=== PATIENT | female | born 1965 | race Caucasian/White ===

== ENCOUNTER → 2018-04-18 08:31 | Outpatient (CLI) | payer OTHER, SELFPAY ==
--- NOTE | 2018-04-18 08:35 | BI_ITS ---
MAMMOGRAPHY - BILATERAL SCREENING REASON FOR EXAM: Female, 52 years old. Routine annual screening examination. PERTINENT HISTORY: FAM HX GMA AGE 84, GAINED 10# IN LAST 5 YRS NO SX BILAT MOLES REMOVED FROM [facility] 2 WEEKS AG TECHNIQUE: Digital bilateral breast erin (3D mammographic acquisition) in the CC and MLO projections. 2-D mediolateral oblique (MLO) and craniocaudad (CC) views of both breasts were obtained. CAD: Full Field Digital Mammography with Computer Added Detection was performed. COMPARISON: Dec 21 2012 2:58pm FINDINGS: Breast Composition: There are scattered areas of fibroglandular density. There are no dominant masses or suspicious calcifications. No other significant abnormalities are identified. BI/SCREENING MAMM (CAD), BILAT IMPRESSION: Stable bilateral screening mammogram. Yearly follow-up mammogram recommended. (A) ASSESSMENT CATEGORY: BIRADS Category 2: Benign. A letter regarding these results will be sent to the patient by the facility within 30 days. Approximately 10% of breast cancers are not detected by mammography. A normal mammogram should not delay biopsy of a clinically suspicious abnormality. [id number] Electronically Signed: Corby Prado MD at 15:19 EDT Tel , Service support ,
== END ==
PROVIDERS: Family Provider Family Medicine; PCP Family Medicine; Referring Provider Family Medicine; Visit Provider Family Medicine
DX: Z12.31 Encounter for screening mammogram for malignant neoplasm of breast (principal)
CPT/HCPCS: 77063; 77067

== ENCOUNTER → 2020-04-23 15:15 | Outpatient (CLI) | payer OTHER, SELFPAY ==
[2020-04-23 17:52] LABS: Erythrocyte Sedimentation Rate 11 mm/hr (0-30)
[2020-04-23 19:08] LABS: CRP < 2.90 mg/L (0.0-3.0); Rheumatoid Factor < 10.0 IU/mL (<15)
[2020-04-27 18:04] LABS: Cytoplasmic Ab (C-ANCA) <1:20 titer (Neg:<1:20); Perinuclear Ab (P-ANCA) <1:20 titer (Neg:<1:20)
[2020-04-27 18:06] LABS: ANTINUCLEAR ANTIBODIES DIRECT Positive (Negative)
== END ==
PROVIDERS: PCP Family Medicine; Referring Provider Ophthalmology; Visit Provider Ophthalmology
DX: H15.109 Unspecified episcleritis, unspecified eye (principal)
CPT/HCPCS: 36415; 85652; 86038; 86140; 86256; 86431

== ENCOUNTER → 2020-07-08 09:44 | Outpatient (CLI) | payer OTHER, SELFPAY ==
[2020-07-08 10:48] LABS: EXAGEN MAILED SPECIMEN
[2020-07-08 12:52] LABS: Color, Urine Yellow (Yellow); Erythrocyte Sedimentation Rate 6 mm/hr (0-30); Glucose, Dipstick Normal (Normal); Ketone-Dipstick Negative (Negative); Leukocyte Esterase-Dipstick Negative /ul (Negative); Nitrite-Dipstick Negative (Negative); Occult Blood-Urine Negative /ul (Negative); Protein-Dipstick Negative (Negative); Urine Bilirubin Dipstick Negative (Negative); Urine Clarity Clear (Clear); Urine Urobilinogen Normal (Normal)
[2020-07-08 12:54] LABS: Absolute Lymphocyte Count 1.69 X10^3/uL (0.83-4.51); Absolute Neutrophil Count 2.8 X10^3/uL (2.0-7.7); Basophil# 0.01 X10^3/uL; Basophil% 0.2 % (0-1); Eosinophil# 0.28 X10^3/uL; Eosinophils% 5.5 % (0-5); Hemoglobin 13.3 g/dL (12.0-15.0); Lymphocyte # 1.69 X10^3/ul (4.0); Mean Corp Hgb Conc 33.3 g/dL (32-36); Mean Corpuscular Hgb 28.4 pg (27.0-32.0); Mean Corpuscular Volume 85.3 fL (81-99); Mean Platelet Vol. 10.8 fl (6.2-12.0); Monocyte# 0.35 X10^3/uL; Monocyte% 6.8 % (0-10); NRBC Flagged by Analyzer 0 % (0-5); Neutrophil # 2.78 X10^3/uL (2.7-7.7); Neutrophil % 54.3 % (47-70); Platelet Count 207 K/mm3 (150-450); RBC Distribution Width CV 12.5 % (11.6-14.6); RBC Distribution Width SD 38.8 fl (35.1-43.9); Red Blood Count 4.69 M/mm3 (4.2-5.4); White Blood Count 5.1 K/mm3 (4.4-11.0)
[2020-07-08 13:05] LABS: Protein, Urine (Random) 10.2 mg/dL (<11.9); Protein:Creat Ratio 165 mg/g CRE (0-200)
[2020-07-08 13:15] LABS: AST(SGOT) 16 U/L (15-37); Alanine Aminotransfer ALT/SGPT 26 U/L (13-56); Albumin, Serum 4.1 g/dL (3.2-5.0); Alkaline Phosphatase 77 U/L (45-117); Anion Gap 3 (5-15); BUN 13 mg/dL (7-18); BUN/Creat Ratio 17.9 RATIO (10-20); CRP < 2.90 mg/L (0.0-3.0); Calcium,Total 9.5 mg/dL (8.5-10.1); Chloride 103 mmol/L (98-107); Creatinine, Serum 0.72 mg/dL (0.55-1.02); EST Glomerular Filtration Rate 88 mL/min (>60); Est Glom Filt Rate - Afr Amer 107 mL/min (>60); Globulin 4.2 g/dL (2.2-4.2); Glucose 78 mg/dL (74-106); Potassium 3.7 mmol/L (3.5-5.1); Protein, Total 8.3 g/dL (6.4-8.2); Sodium Level 137 mmol/L (136-145)
== END ==
PROVIDERS: PCP Family Medicine; Referring Provider Internal Medicine Rheumatology; Visit Provider Internal Medicine Rheumatology
DX: L40.59 Other psoriatic arthropathy (principal); L40.8 Other psoriasis; H00-H59 Diseases of the eye and adnexa; H15.103 Unspecified episcleritis, bilateral; K58.9 Irritable bowel syndrome, unspecified; R76.8 Other specified abnormal immunological findings in serum; Z15.89 Genetic susceptibility to other disease
CPT/HCPCS: 36415; 80053; 81002; 82570; 84156; 85025; 85652; 86140

== ENCOUNTER 2020-10-09 22:13 | Emergency (ER) | payer OTHER, SELFPAY ==
[2020-10-09 22:14] VITALS: BP 149/85; PULSE 74; RESP 18; TEMP 36.6; O2SAT 99; BMI 29.6
--- NOTE | 2020-10-09 22:41 | EKG12_ITS ---
Test Reason : DYSRHYTHMIA Blood Pressure : / mmHG Vent. Rate : 063 BPM Atrial Rate : 063 BPM P-R Int : 160 ms QRS Dur : 080 ms QT Int : 392 ms P-R-T Axes : 050 014 046 degrees QTc Int : 401 ms Normal sinus rhythm with sinus arrhythmia Normal ECG Confirmed by DANIEL MITCHELL, AYLA ([id number]), development editor JOSE LUIS SOUZA ([id number]) on 10/12/2020 1:50:49 PM Referred By: MARGOTH Confirmed By:AYLA SANCHEZ MD
--- NOTE | 2020-10-09 22:41 | ED.VIS.GEN ---
History of Present Illness Chief Complaint: General Illness Informant: Patient Onset: Weeks - 2 Context: Sudden Onset Timing: Intermittent, Lasts - 10-20 min Quality: ache Location: left upper arm, radiating into left upper back/trapezius Current Severity: gone at current time Maximum Severity: Severe Worsened by: moving when pain is present Relieved by: nothing in particular Associated Symptoms: none Narrative: Patient with 2 weeks of intermittent symptoms, states they occur randomly and there is no obvious pattern. She has them multiple times per day most days. She does not have a history of heart problems and had a negative routine stress test years ago. She is a non-smoker. She takes no prescriptions for diabetes, hypertension, hyperlipidemia, just occasional eyedrops and NSAIDs for episcleritis that occasionally flares up in her right eye. When she has the symptoms, she states it is really in her upper arm mostly, and it really hurts to move her left arm. When he goes away, she can move her left arm without any pain. She denies any injury. She is right-hand dominant. She does a lot of climbing ladders, lifting, pulling heavy things at work, but cannot think of anything specific that could be responsible for this. When the symptoms are present she has no lightheadedness, palpitations, racing heartbeat, chest discomfort, shortness of breath, abdominal pain. No recent leg pain or swelling. No pleuritic symptoms. She states her main purpose for coming here was to make sure that she has not been having her pain. - Past Medical History (1) Episcleritis of right eye Status: Chronic Past Medical History - Allergies and Home Meds Allergies/Adverse Reactions: Allergies amoxicillin [From Augmentin] Adverse Reaction (Verified 10/09/20 22:16) Other nervous clavulanic acid [From Augmentin] Adverse Reaction (Verified 10/09/20 22:16) Other nervous Primary Care Physician: Amanda Belle MD [Primary Care Provider] - Lives: With Family Smoking Status: Never smoker Review of Systems General: Denies: Chills, Fever, Sweats Eyes: Denies: Visual changes - bilaterally, Diplopia ENT: Denies: Rhinorrhea, Sore throat Cardiovascular: Denies: Chest pain, Palpitations Respiratory: Denies: Dyspnea, Cough, Dyspnea on exertion Gastrointestinal: Denies: Abdominal pain, Nausea, Vomiting, Diarrhea, Melena, Hematochezia Genitourinary: Denies: Dysuria, Hematuria, Frequency Musculoskeletal: Reports: Back pain, Extremity Pain. Denies: Myalgias, Neck pain Skin: Denies: Rash, Wounds Neurological: Denies: Headache, Weakness, Numbness Physical Exam Vital Signs/Narrative: Vital Signs Temp Pulse Resp BP Pulse Ox 10/09/20 22:14 97.9 F 74 18 149/85 H 99 Inital Vital Signs reviewed: Yes General: Well nourished, Well developed, No Acute Distress - Well-appearing in no distress Head: Normocephalic, Atraumatic Eyes: Perrl, EOMI ENT: Moist mucous membranes, No rhinorrhea Neck: Supple, Nontender, No lymphadenopathy Cardiovascular: Regular rate, Regular rhythm, No murmurs, Normal S1, Normal S2. Negative for: Tachycardia Respiratory: No distress, CTA bilaterally, Chest nontender Abdomen: Soft, Nontender, Nondistended, Normal bowel sounds Back: Nontender, Normal Inspection Extremities: Nontender - Throughout extremities including left upper arm. Negative drop sign when testing supraspinatus, no pain., No edema Skin: Normal color, No rash, No Trauma Neurological: Alert, Oriented x3, Cranial nerves II-XII grossly intact, Normal Strength, Normal Sensation, Normal Gait Psychological: Normal affect, Normal Mood Diagnostic/Tx/Re-eval Laboratory Results 10/09/20 10/09/20 22:29 22:29 WBC 5.8 RBC 4.74 Hgb 13.5 Hct 39.4 MCV 83.1 MCH 28.5 MCHC 34.3 RDW Std Deviation 38.0 RDW Coeff of Manuel 12.5 Plt Count 182 MPV 10.7 Immature Gran % (Auto) 0.300 Neut % (Auto) 47.1 Lymph % (Auto) 39.1 [place] % (Auto) 9.0 Eos % (Auto) 4.3 Baso % (Auto) 0.2 Absolute Neuts (auto) 2.7 Absolute Lymphs (auto) 2.27 Nucleated RBC % 0 Sodium 141 Potassium 3.6 Chloride 105 Carbon Dioxide 29.0 Anion Gap 7 BUN 16 Creatinine 0.79 Estim Creat Clear Calc 70.70 Est GFR (MDRD) Af Amer 96 Est GFR (MDRD) Non-Af 80 BUN/Creatinine Ratio 20.2 H Glucose 112 H Calcium 9.8 Troponin I < 0.015 - Rhythm Strip Rhythm Strip: Sinus Rhythm Rate: 63 Ectopy: None - EKG Initial EKG Interpretation: Sinus Rhythm, No Acute Injury Pattern - normal EKG - Medical Decision Making This patient's history is unusual but it sounds musculoskeletal, given that she states that when she has the arm pain, her arm is virtually disabled because it hurts so bad to move, and she confirms that moving does make it worse when she has it. It sounds like it might be muscular spasm; she did not have any electrolyte abnormalities. Sounds less like radiculopathy but that would be in the differential as well, if so coming from the neck. Her cardiac work-up is normal. This makes acute coronary syndrome much less likely given the length of time this has been going on and numerous episodes per day. Given that she is safely discharged home to follow-up with her doctor she is comfortable with that plan. All of this being the case, as I discussed with the patient, if she is incorrect about the pain being worse when she moves her arm, it may be reasonable for her to have another outpatient stress test but I do not think she needs to be admitted for that. ED Disposition - Plan for ED Patient: Disposition: Home or Assisted Living Diagnosis: Left upper arm pain Instructions: ED Muscle Strain, Extremity Referrals: Amanda Belle MD [Primary Care Provider] - (This coming week, call for appointment)
[2020-10-09 22:55] LABS: Absolute Lymphocyte Count 2.27 X10^3/uL (0.83-4.51); Absolute Neutrophil Count 2.7 X10^3/uL (2.0-7.7); Basophil# 0.01 X10^3/uL; Basophil% 0.2 % (0-1); Eosinophil# 0.25 X10^3/uL; Eosinophils% 4.3 % (0-5); Hematocrit 39.4 % (37-47); Hemoglobin 13.5 g/dL (12.0-15.0); Lymphocyte # 2.27 X10^3/ul (4.0); Lymphocyte % 39.1 % (19-41); Mean Corp Hgb Conc 34.3 g/dL (32-36); Mean Corpuscular Hgb 28.5 pg (27.0-32.0); Mean Corpuscular Volume 83.1 fL (81-99); Mean Platelet Vol. 10.7 fl (6.2-12.0); Monocyte# 0.52 X10^3/uL; NRBC Flagged by Analyzer 0 % (0-5); Neutrophil # 2.73 X10^3/uL (2.7-7.7); Neutrophil % 47.1 % (47-70); Platelet Count 182 K/mm3 (150-450); RBC Distribution Width CV 12.5 % (11.6-14.6); Red Blood Count 4.74 M/mm3 (4.2-5.4); White Blood Count 5.8 K/mm3 (4.4-11.0)
[2020-10-09 23:02] LABS: Anion Gap 7 (5-15); BUN 16 mg/dL (7-18); BUN/Creat Ratio 20.2 RATIO (10-20); Calcium,Total 9.8 mg/dL (8.5-10.1); Chloride 105 mmol/L (98-107); Creatinine, Serum 0.79 mg/dL (0.55-1.02); EST Glomerular Filtration Rate 80 mL/min (>60); Est Glom Filt Rate - Afr Amer 96 mL/min (>60); Glucose 112 mg/dL (74-106); Potassium 3.6 mmol/L (3.5-5.1); Sodium Level 141 mmol/L (136-145)
[2020-10-10 00:12] VITALS: BP 121/74; PULSE 71; RESP 15; O2SAT 96
== END 2020-10-10 00:12 | disposition home or self-care (01) ==
PROVIDERS: Emergency Provider Emergency Medicine; PCP Family Medicine
DX: M79.622 Pain in left upper arm (principal)
CPT/HCPCS: 80048; 84484; 85025; 93005; 99284; A4216

== ENCOUNTER → 2021-02-12 17:50 | Outpatient (CLI) | payer OTHER, SELFPAY ==
[2021-02-12 20:02] LABS: Probe Check PASS; Specimen Processing Control PASS
== END ==
PROVIDERS: PCP Family Medicine; Referring Provider Family Medicine; Visit Provider Family Medicine
DX: Z20.822 Contact with and (suspected) exposure to COVID-19 (principal)
CPT/HCPCS: 87635; U0005; U0003

== ENCOUNTER 2021-09-16 11:50 | Outpatient (CLI) | payer OTHER, SELFPAY ==
--- NOTE | 2021-09-16 11:53 | BI_ITS ---
MAMMOGRAPHY - BILATERAL SCREENING REASON FOR EXAM: Female, 55 years old. Routine annual screening examination. PERTINENT HISTORY: Grandmother with breast cancer. TECHNIQUE: Digital bilateral breast sultana (3D mammographic acquisition) in the CC and MLO projections. 2-D mediolateral oblique (MLO) and craniocaudad (CC) views of both breasts were obtained. CAD: Full Field Digital Mammography with Computer Added Detection was performed. COMPARISON: Comparison is made with prior study done 04/18/2018 and 12/21/2012. FINDINGS: Breast Composition: There are scattered areas of fibroglandular density. There are no dominant masses or suspicious calcifications. No other significant abnormalities are identified. There has been no significant change since the prior study. BI/SCRN MAMM (CAD)W/SULTANA BILAT IMPRESSION: Stable bilateral screening mammogram. Yearly follow-up mammogram recommended. (A) ASSESSMENT CATEGORY: BIRADS Category 1: Negative. A letter regarding these results will be sent to the patient by the facility within 30 days. Approximately 10% of breast cancers are not detected by mammography. A normal mammogram should not delay biopsy of a clinically suspicious abnormality. [id number] Electronically Signed: Mando Almeida MD at 13:18 EST ,
== END 2021-09-16 23:59 | disposition home or self-care (01) ==
LOC: OPBI 11:51
PROVIDERS: PCP Family Medicine; Referring Provider Family Medicine; Visit Provider Family Medicine
DX: Z12.31 Encounter for screening mammogram for malignant neoplasm of breast (principal)
CPT/HCPCS: 77063; 77067

== ENCOUNTER → 2021-12-30 | Outpatient (CLI) | payer OTHER, SELFPAY ==
--- NOTE | 2021-12-30 12:56 | ECHOD_ITS ---
Reason For Study: Chest pain, JEFFERS Procedure This was a 2D Doppler, Color Flow transthoracic echocardiogram. The exam was of adequate technical quality. Exam performed in department. Left Ventricle Normal LV size. Apical false tendon noted. Left ventricular systolic function is normal. The estimated ejection fraction is 60 %. No evidence for diastolic dysfunction. No regional wall motion abnormalities noted. Right Ventricle Normal RV size. Normal systolic function. Atria Normal left atrium. Normal right atrium. No doppler evidence for ASD. Mitral Valve There is no mitral annular calcification. Normal mitral valve. Trivial mitral valve insufficiency. Tricuspid Valve Normal tricuspid valve. Trivial tricuspid valve insufficiency. Right ventricular systolic pressure estimated to be 21 mmHg. Aortic Valve Trisinus/trileaflet aortic valve. Normal aortic valve. Pulmonic Valve The pulmonic valve is not well visualized. Great Vessels Normal sized aortic root. Pericardium/Pleural No pericardial effusion. MMode/2D Measurements & Calculations LVIDd: 4.5 cm IVSd: 0.97 cm Ao root diam: 2.7 cm LVIDs: 2.6 cm LVPWd: 0.93 cm RVDd: 3.5 cm FS: 41.7 % LAV(MOD-bp): 51.2 ml LVAd ap4: 23.9 cm2 LVAd ap2: 24.9 cm2 LAV(MOD-bp) Indexed: 27.0 ml/m2 LVLd ap4: 7.6 cm LVLd ap2: 7.8 cm LAV(MOD-sp2): 44.6 ml EDV(MOD-sp4): 62.3 ml EDV(MOD-sp2): 71.4 ml LAV(MOD-sp4): 54.4 ml EDV(sp4-el): 63.3 ml EDV(sp2-el): 68.0 ml LVAs ap4: 13.6 cm2 LVAs ap2: 13.3 cm2 LVLs ap4: 6.9 cm LVLs ap2: 6.8 cm ESV(MOD-sp4): 23.4 ml ESV(MOD-sp2): 24.7 ml ESV(sp4-el): 22.7 ml ESV(sp2-el): 22.2 ml EF(MOD-sp4): 62.5 % EF(MOD-sp2): 65.5 % EF(sp4-el): 64.2 % SV(MOD-sp4): 39.0 ml SV(MOD-sp2): 46.7 ml SV(sp4-el): 40.6 ml LA dimension(2D): 3.8 cm LA A4 area: 19.4 cm2 RA A4 area: 14.6 cm2 Doppler Measurements & Calculations MV E max matt: 88.0 cm/sec Lat Peak E' Matt: 13.3 cm/sec Med Peak E' Matt: 8.5 cm/sec MV A max matt: 59.0 cm/sec E/E' lat: 6.6 E/E' med: 10.3 MV E/A: 1.5 Ao V2 max: 142.3 cm/sec LV V1 max: 106.4 cm/sec PA V2 max: 97.3 cm/sec Ao max P.1 mmHg LV V1 max P.5 mmHg TR max matt: 203.0 cm/sec TR max P.5 mmHg ECHO/Echo Complete Interpretation Summary Left ventricular systolic function is normal. The estimated ejection fraction is 60 %. Apical false tendon noted. Trivial mitral valve insufficiency. Trivial tricuspid valve insufficiency. Right ventricular systolic pressure estimated to be 21 mmHg. No evidence for diastolic dysfunction. Ordering Physician: Cheng Her Referring Physician: Amanda Belle M.D. Performed By: Lucero Scott RDCS
== END | disposition home or self-care (01) ==
LOC: CVS 12:54
PROVIDERS: PCP Family Medicine; Referring Provider Internal Medicine Cardiovascular Disease; Visit Provider Internal Medicine Cardiovascular Disease
DX: R07.9 Chest pain, unspecified (principal); R06.00 Dyspnea, unspecified; Z82.49 Family history of ischemic heart disease and other diseases of the circulatory system
CPT/HCPCS: 93306

== ENCOUNTER → 2022-01-12 | Outpatient (CLI) | payer OTHER, SELFPAY ==
--- NOTE | 2022-01-12 13:06 | STRESSREP_ITS ---
Stress Test Report Date: 01-12-2022 Procedure: Exercise tolerance test/imaging study Indications: Shortness of breath/dyspnea on exertion; family history of toby ture cardiovascular disease Consent: Per the patient Procedure: The patient exercised on a Boy protocol for 7 minutes and 11 seconds completing Stage II and 1 minute and 11 seconds of Stage III achieving a peak heart rate of 148 bpm (91% predicted maximal heart rate) with a peak blood pressure 192/80 mmHg and a peak MET capacity of 10 METs. The baseline ECG demonstrated sinus bradycardia. The peak exercise ECG demonstrated with somatic/motion artifact with approximately 0.[address] segment depression in leads II, III, aVF, and V3 through V6 with resolution towards baseline beginning less than 1 minute in recovery. There was an isolated PVC during exercise. The functional capacity was considered good. There was no complaint of chest discomfort during exercise or recovery. The examination was discontinued secondary to dyspnea. Impression: 1. Technically adequate (percent predicted maximal heart rate greater than 85%) exercise tolerance test 2. Peak exercise ECG with somatic/motion artifact with approximately 0.[address] segment depression in leads II, III, aVF, and V3 through V6 with resolution towards baseline beginning less than 1 minute in recovery 3. There was an isolated PVC during exercise 4. Nuclear images pending Myocardial perfusion imaging study: Technique: The patient was injected with 11.9 mCi of technetium 99m Cardiolite and subsequently rest SPECT Cardiolite nuclear imaging was obtained in the horizontal long, vertical long, and short axis views. The patient exercised on a Boy protocol for 7 minutes and 11 seconds completing Stage II and 1 minute and 11 seconds of Stage III achieving a peak heart rate of 148 bpm (91% predicted maximal heart rate) with a peak blood pressure 192/80 mmHg and a peak MET capacity of 10 METs. The patient was injected with 34.6 mCi of technetium 99m Cardiolite and subsequently stress SPECT Cardiolite nuclear imaging was obtained in the horizontal long, vertical long, and short axis views. A gated Cardiolite study at peak stress was obtained. Interpretation: Rest and stress SPECT Cardiolite nuclear imaging status post realignment, normalization, and attenuation correction, demonstrates the appearance of relative uniform tracer uptake and myocardial perfusion appearing within normal limits. There is end systolic thickening and brightening. The gated Cardiolite study demonstrates myocardial thickening and inward wall motion. The reported LVEF is 64%. Impression: 1. Rest and stress SPECT Cardiolite nuclear imaging demonstrate relative uniform tracer uptake and myocardial perfusion appearing within normal limits. 2. The gated Cardiolite study reports an LVEF of 64%. This note was generated with [employer] dictation software. It may contain incorrect words, spelling, and punctuation that were not noted in checking the note before signing.
== END | disposition home or self-care (01) ==
PROVIDERS: PCP Family Medicine; Referring Provider Internal Medicine Cardiovascular Disease; Visit Provider Internal Medicine Cardiovascular Disease
DX: R07.9 Chest pain, unspecified (principal); R06.09 Other forms of dyspnea; Z82.49 Family history of ischemic heart disease and other diseases of the circulatory system
CPT/HCPCS: 78452; 93017; A9500; A4216

== ENCOUNTER → 2022-12-05 | Outpatient (CLI) | payer OTHER, SELFPAY ==
--- NOTE | 2022-12-05 13:36 | BI_ITS ---
MAMMOGRAPHY - BILATERAL SCREENING REASON FOR EXAM: Female, 57 years old. Routine annual screening examination. PERTINENT HISTORY: Grandmother with breast cancer. TECHNIQUE: Digital bilateral breast sultana (3D mammographic acquisition) in the CC and MLO projections. 2-D mediolateral oblique (MLO) and craniocaudad (CC) views of both breasts were obtained. CAD: Full Field Digital Mammography with Computer Added Detection was performed. COMPARISON: Mammogram from 09/16/2021, 04/18/2018 FINDINGS: Breast Composition: There are scattered areas of fibroglandular density. There are no dominant masses or suspicious calcifications. No other significant abnormalities are identified. There has been no significant change since the prior study. BI/SCRN MAMM (CAD)W/SULTANA BILAT IMPRESSION: Stable bilateral screening mammogram. Yearly follow-up mammogram recommended. (A) ASSESSMENT CATEGORY: BIRADS Category 1: Negative. A letter regarding these results will be sent to the patient by the facility within 30 days. Approximately 10% of breast cancers are not detected by mammography. A normal mammogram should not delay biopsy of a clinically suspicious abnormality. Electronically Signed: Oleg Fitzpatrick MD at 16:35 EDT ,
== END | disposition home or self-care (01) ==
LOC: OPBI 13:35
PROVIDERS: PCP Family Medicine; Referring Provider Family Medicine; Visit Provider Family Medicine
DX: Z12.31 Encounter for screening mammogram for malignant neoplasm of breast (principal); Z80.3 Family history of malignant neoplasm of breast
CPT/HCPCS: 77063; 77067

== ENCOUNTER → 2024-01-11 | Outpatient (CLI) | payer OTHER, SELFPAY ==
--- NOTE | 2024-01-11 13:03 | BI_ITS ---
MAMMOGRAPHY - BILATERAL SCREENING REASON FOR EXAM: Female, 58 years old. Routine annual screening examination. PERTINENT HISTORY: Grandmother with breast cancer. TECHNIQUE: Digital bilateral breast sultana (3D mammographic acquisition) in the CC and MLO projections. 2-D mediolateral oblique (MLO) and craniocaudad (CC) views of both breasts were obtained. CAD: Full Field Digital Mammography with Computer Added Detection was performed. COMPARISON: Comparison is made with prior study December 05, 2022 and September 16, 2021. FINDINGS: Breast Composition: There are scattered areas of fibroglandular density. There are no dominant masses or suspicious calcifications. No other significant abnormalities are identified. There has been no significant change since the prior study. BI/SCRN MAMM (CAD)W/SULTANA BILAT IMPRESSION: Stable bilateral screening mammogram. Yearly follow-up mammogram recommended. (A) ASSESSMENT CATEGORY: BIRADS Category 1: Negative. A letter regarding these results will be sent to the patient by the facility within 30 days. Approximately 10% of breast cancers are not detected by mammography. A normal mammogram should not delay biopsy of a clinically suspicious abnormality. [id number] Electronically Signed: Mando Almeida MD at 16:14 EDT ,
== END | disposition home or self-care (01) ==
LOC: OPBI 13:03
PROVIDERS: PCP Family Medicine; Referring Provider Family Medicine; Visit Provider Family Medicine
DX: Z12.31 Encounter for screening mammogram for malignant neoplasm of breast (principal)
CPT/HCPCS: 77063; 77067

== ENCOUNTER → 2025-02-06 | Outpatient (CLI) | payer OTHER, SELFPAY ==
--- NOTE | 2025-02-06 14:03 | BI_ITS ---
EXAM: SCRN MAMM (CAD)W/SULTANA BILAT DATE: 02/06/2025 CLINICAL HISTORY: F, Age 59 y/o , SCREENING TECHNIQUE: SCRN MAMM (CAD)W/SULTANA BILAT COMPARISON: Prior exam(s) were compared FINDINGS: TISSUE DENSITY: There are scattered areas of fibroglandular density. Bilateral Breast Mammographic Findings: No suspicious masses, calcifications or other abnormalities are identified. BI/SCRN MAMM (CAD)W/SULTANA BILAT IMPRESSION: No mammographic evidence of malignancy in either breast. OVERALL FINAL ASSESSMENT BI-RADS 1: NEGATIVE. RECOMMENDATION: Routine annual follow-up in 1 Year A letter with findings and recommendations will be mailed to the patient. Reading Location: [id number]
== END | disposition home or self-care (01) ==
LOC: OPBI 14:02
PROVIDERS: PCP Family Medicine; Referring Provider Family Medicine; Visit Provider Family Medicine
DX: Z12.31 Encounter for screening mammogram for malignant neoplasm of breast (principal)
CPT/HCPCS: 77063; 77067